=== PATIENT | male | born 1975 | race Caucasian/White ===

== ENCOUNTER 2019-10-01 12:47 | Emergency (ER) | payer OTHER, SELFPAY ==
[2019-10-01 12:59] VITALS: BP 145/83; PULSE 71; RESP 18; TEMP 37.6; O2SAT 100
--- NOTE | 2019-10-01 13:01 | ED.SKABFB ---
HPI - Skin/Abscess/Foreign Bdy General Chief complaint: Skin/Abscess/Foreign Body Stated complaint: rash on body - poss poison mimi Time Seen by Provider: 10/01/19 13:02 Source: patient and RN notes reviewed Mode of arrival: ambulatory Limitations: no limitations History of Present Illness HPI narrative: This is a 43 years old male presented office for evaluation of possible skin infection on his left arm. He has a burn from grilling on his forearm which appears to heal a week + ago. However, a couple days ago he was doing some yard work and acquires poison mimi on his arms and legs; which he has tried to treat it with otc stuff. The area where he got burnt appears to have swelled up with redness and blistering. TD is up to date. He is Diabetic. Related Data Home Medications Medication Instructions Recorded Confirmed atorvastatin 10 mg PO DAILY 10/01/19 10/01/19 metformin 500 mg PO DIRECTED 10/01/19 10/01/19 Allergies Allergy/AdvReac Type Severity Reaction Status Date / Time No Known Allergies Allergy Unverified 10/01/19 12:59 Review of Systems Review of Systems: Narrative: CONSTITUTIONAL: Denies fever or feeling ill ENT: Denies congestion CARDIOVASCULAR: Denies chest pain RESPIRATORY: Denies dyspnea GASTROINTESTINAL: Denies abdominal pain, nausea, vomiting, diarrhea. SKIN: Reports a few spots of itchy rash throughout his lower and extremities. Left forearm with blister, redness, swollen and little pain to touch MUSCULOSKELETAL: Denies joints pain NEUROLOGIC: Denies lightheaded/dizziness PMFSH Past Medical History Medical History (Updated 10/01/19 @ 13:11 by MARY Oh) Diabetes mellitus, type II HLD (hyperlipidemia) Comments At time of signature, I agree with nursing past medical, surgical, social and family history. There is no relevant family history pertinent to the presenting complaint. Exam Narrative: Exam Narrative: GENERAL: This is a well-nourished, well-developed patient, in no apparent distress. CARDIOVASCULAR: Regular rate and rhythm without murmurs, gallops, or rubs. RESPIRATORY: Clear to auscultation. Breath sounds equal bilaterally. No wheezes, rales, or rhonchi. GASTROINTESTINAL: Abdomen soft, non-tender, nondistended. Bowel sounds are active. No hepato-splenomegaly, or palpable masses. No guarding. NEURO: awake, alert, and oriented to person, place and time. There were no obvious focal neurologic abnormalities. Steady gait EXTREMITIES: left anterior forearm noted linear scab with vesicular lesions around it and clear demarcation, warmth to palpation with underlying edematous. No lymphandenitis note. Upper arms noted a few linear vesicular lesions without obvious secondary cellulitis. No obvious lesions on lower extremities. No arturo signs. De Ruyter Coma Scale Eye Opening: Spontaneous 4 [place]ter Coma Scale Motor: Obeys Commands 6 Kalina Coma Scale Verbal: Oriented 5 Course Vital Signs Vital signs: Vital Signs Temperature 99.7 F H 10/01/19 12:59 Pulse Rate 71 10/01/19 12:59 Respiratory Rate 18 10/01/19 12:59 Blood Pressure 145/83 H 10/01/19 12:59 Pulse Oximetry 100 10/01/19 12:59 Temperature 99.7 F H 10/01/19 12:59 Pulse Rate 71 10/01/19 12:59 Respiratory Rate 18 10/01/19 12:59 Blood Pressure 145/83 H 10/01/19 12:59 Pulse Oximetry 100 10/01/19 12:59 MDM - Skin/Abscess/Foreign Bdy MDM Narrative Medical decision making narrative: Elevated BP noted: patient is informed that they may have pre-hypertension or hypertension based on a blood pressure reading in the department. I recommend the patient call the primary care provider listed on their discharge instructions or a physician of their choice this week to arrange follow-up for further evaluation of possible pre-hypertension or hypertension within 1-2week. Discharge instructions reviewed with patient, as well as provided in writing per nursing staff. The instructions also include spec
== END 2019-10-01 13:13 | disposition home or self-care (01) ==
PROVIDERS: Emergency Provider Nurse Practitioner; PCP Internal Medicine
DX: L24.7 Irritant contact dermatitis due to plants, except food (principal); L03.114 Cellulitis of left upper limb; T22.012A Burn of unspecified degree of left forearm, initial encounter; T31.0 Burns involving less than 10% of body surface; R03.0 Elevated blood-pressure reading, without diagnosis of hypertension; E78.5 Hyperlipidemia, unspecified; E11.9 Type 2 diabetes mellitus without complications; Z79.84 Long term (current) use of oral hypoglycemic drugs; Y93.G2 Activity, grilling and smoking food; X19.XXXA Contact with other heat and hot substances, initial encounter
CPT/HCPCS: 99203; G0463

== ENCOUNTER 2019-10-13 10:44 | Emergency (ER) | payer OTHER, SELFPAY ==
[2019-10-13 10:51] VITALS: BP 145/80; PULSE 93; RESP 16; TEMP 37.1; O2SAT 100
--- NOTE | 2019-10-13 10:59 | ED.GENADULT ---
HPI - General Adult General Chief complaint: Skin/Abscess/Foreign Body Stated complaint: rash on chest/back/legs Time Seen by Provider: 10/13/19 11:02 Source: patient and RN notes reviewed Mode of arrival: ambulatory Limitations: no limitations History of Present Illness HPI narrative: This is a 43 years old male presented office for evaluation of general hives for the last 3 to 4 days. Rash is very itchy. He tried Zyrtec. He was seen recently for skin infection and placed on an antibiotic which he completed as prescribed. He noticed the rash about 2days after the completion of antibiotic. Denies shortness of breath, swollen lip, tightness or wheezing. Denies sick contact. Denies any other new medication, food, clothes, or sick contact. Related Data Home Medications Medication Instructions Recorded Confirmed atorvastatin 10 mg PO DAILY 10/01/19 10/13/19 metformin 500 mg PO DIRECTED 10/01/19 10/13/19 Allergies Allergy/AdvReac Type Severity Reaction Status Date / Time clindamycin AdvReac Intermediate hives Verified 10/13/19 11:11 Review of Systems Review of Systems: Narrative: CONSTITUTIONAL: Denies fever or feeling ill EYES: Denies visual changes ENT: Denies sore throat CARDIOVASCULAR: Denies chest pain RESPIRATORY: Denies dyspnea, wheezing, cough GASTROINTESTINAL: Denies abdominal pain, nausea, vomiting or diarrhea SKIN: Reports generalize itchy rash MUSCULOSKELETAL: Denies joints pain NEUROLOGIC: Denies lightheaded/dizziness All other systems reviewed are negative, except as documented in HPI. [facility] Past Medical History Medical History Diabetes mellitus, type II HLD (hyperlipidemia) Comments At time of signature, I agree with nursing past medical, surgical, social and family history. There is no relevant family history pertinent to the presenting complaint. Exam Narrative: Exam Narrative: GENERAL: This is a well-nourished, well-developed patient, in no apparent distress. EYES: Sclera clear/white. Vision is grossly intact. EARS: External ears normal, auditory canals clear and without drainage, TMs normal without perforation. Hearing grossly intact. NOSE: External nose normal with no obvious nasal discharge, nares without redness, no rhinorrhea. THROAT: Mucous membranes moist, posterior pharynx clear. NECK: Neck supple, non-tender without lymphadenopathy, masses or thyromegaly. CARDIOVASCULAR: Regular rate and rhythm without murmurs, gallops, or rubs. RESPIRATORY: Clear to auscultation. Breath sounds equal bilaterally. No wheezes, rales, or rhonchi. GASTROINTESTINAL: Abdomen soft, non-tender, nondistended. Bowel sounds are active. No hepato-splenomegaly, or palpable masses. No guarding. SKIN:generalize urticaria type lesions noted except face and neck. Left forearm where cellulitis was has significant improved without obvious edematous, warmth or erythema. NEURO: awake, alert, and oriented to person, place and time. There were no obvious focal neurologic abnormalities. Steady gait Carrier Coma Scale Eye Opening: Spontaneous 4 Kalina Coma Scale Motor: Obeys Commands 6 Kalina Coma Scale Verbal: Oriented 5 Course Vital Signs Vital signs: Vital Signs Temperature 98.7 F 10/13/19 10:51 Pulse Rate 93 10/13/19 10:51 Respiratory Rate 16 10/13/19 10:51 Blood Pressure 145/80 H 10/13/19 10:51 Pulse Oximetry 100 10/13/19 10:51 Temperature 98.7 F 10/13/19 10:51 Pulse Rate 93 10/13/19 10:51 Respiratory Rate 16 10/13/19 10:51 Blood Pressure 145/80 H 10/13/19 10:51 Pulse Oximetry 100 10/13/19 10:51 Medical Decision Making MDM Narrative Medical decision making narrative: Patient is Urgent/Emergent. BP elevated due to current condition w/o HTN in PMH (Measure Met). Discharge instructions reviewed with patient, as well as provided in writing per nursing staff. The instructions also include specific and strict return/G
[2019-10-13] MEDS: methylPREDNISolone ACETATE 40 MG/ML VIAL 80 MG IM (11:17)
== END 2019-10-13 11:40 | disposition home or self-care (01) ==
PROVIDERS: Emergency Provider Nurse Practitioner; PCP Internal Medicine
DX: T78.40XA Allergy, unspecified, initial encounter (principal); E11.9 Type 2 diabetes mellitus without complications; E78.5 Hyperlipidemia, unspecified; Z79.84 Long term (current) use of oral hypoglycemic drugs
CPT/HCPCS: 96372; 99213; G0463; J1030

== ENCOUNTER 2020-04-02 07:00 | Outpatient (NON) | payer OTHER, SELFPAY ==
[2020-04-03 00:26] LABS: SARS-CoV-2 RNA PCR Negative
== END 2020-04-02 07:01 ==
LOC: ANHCOVIDDT 07:03
PROVIDERS: PCP Internal Medicine; Visit Provider Internal Medicine
DX: Z20.828 Contact with and (suspected) exposure to other viral communicable diseases (principal)
CPT/HCPCS: 87635; C9803; U0003